=== PATIENT | male | born 1960 | race Caucasian/White ===

== ENCOUNTER 2024-01-14 20:43 | Emergency (ER) | payer BC, SELFPAY ==
[2024-01-14 20:46] VITALS: BP 164/78
--- NOTE | 2024-01-14 22:12 | ED.GENMED ---
History of Present Illness
General
Chief Complaint: Musculo-Skeletal Complaint
Time Seen by Provider: 01/14/24 21:22
History of Present Illness
History of Present Illness:
63-year-old male presents to the emergency department for evaluation of right ankle pain, was playing pickle ball and he attempted this step on the foot, felt a pop to the right heel. He is unable to bear weight since.
Review of Systems
Review of Systems
Allergies reviewed?: Yes
All Other Systems: ROS reviewed and negative except as documented in HPI and ROS
Phy Exam
Physical Exam
Physical Exam:
GEN: Well appearing, NAD, WDWN
HEENT: Oral mucosa moist, no scleral icterus
Cardiac: Regular rate
Lung: No respiratory distress, no tachypnea
MSK: Obvious deformity at the right distal Achilles tendon insertion with palpable retracted tendon body, positive Camacho sign
Skin: Good color, no pallor or jaundice, no rashes
Neuro: AO x3, moves all extremities freely
Psych: Calm, cooperative
Course
Orders/Labs/Results
Orders:
Orders
01/14/24 20:48
Ankle, Right 3 view CR [CR Ankle - Right Min 3 Views *] Urgent
Comment:
Reason For Exam: pain;swelling
01/14/24 22:12
Ortho Boot Right- Treatment ONCE
Short or tall?: Tall
Vital Signs
Initial and Last Documented VS:
Initial Vital Signs
Temp Pulse Resp BP Pulse Ox
97.5 F 71 19 164/78 100
01/14/24 20:46 01/14/24 20:46 01/14/24 20:46 01/14/24 20:46 01/14/24 20:46
Last Documented Vital Signs
Temp Pulse Resp BP Pulse Ox
97.5 F 71 19 164/78 100
01/14/24 20:46 01/14/24 20:46 01/14/24 20:46 01/14/24 20:46 01/14/24 20:46
MDM/Problems Addressed
MDM/Problems Addressed:
X-rays are negative. Exam is consistent with Achilles tendon rupture, placed in orthopedic boot and advised nonweightbearing until orthopedic follow-up
*Critical Care Note
Total Time (30-74mins, 75-104mins- exclusive of procedures): Not Applicable
ED Attending Note
-
Portions of this chart may have been created with voice recognition software.� Occasional wrong word or��sound alike� substitutions may have occurred due to the inherent limitations of voice recognition software.
Discharge Plan
Departure
Patient Disposition: Home (Routine Discharge)
Date of Disposition: 01/14/24
Time of Disposition: 22:13
Patient with high blood pressure during this ER visit?: No
Discharge Problem:
Rupture of right Achilles tendon
Instructions: Achilles Tendon Rupture (DC)
Prescriptions:
No Action
calcium carbonate [Antacid (calcium carbonate)] 1 TABLET tablet,chewable
2 tab PO Q4HPRN PRN (Reason: heartburn)
ibuprofen 200 MG tablet
600 mg PO QID Qty: 1 0RF
Rx Instructions:
take 4x/day (with meals and at bedtime) through Sunday evening; thereafter take as needed
oxycodone-acetaminophen 5 MG/325 MG tablet
1 tab PO Q4HPRN PRN (Reason: pain not relieved by ibuprofen) Qty: 15 0RF
Referrals:
Shruthi Garcia I., DO [Active] -
Avel Augustine MD [Family Provider] -
Activity Restrictions/Additional Instructions:
Follow up with Orthopedics as soon as possible
Keep the leg elevated
Wear the boot at all times. Even when wearing the boot, NO WEIGHT BEARING ON THE RIGHT LEG. Use crutches
Interventions
Interventions:
*Risk Screen - Suicide Last Done: 01/14/24 20:46
*General Assessment Last Done: 01/14/24 20:46
*Neglect/Abuse Screening Last Done: 01/14/24 20:46
ED- Fall Risk Assessment Last Done: 01/14/24 22:31
*ED COVID-19 Vaccine History Last Done: 01/14/24 20:46
*Nursing Disposition Last Done: 01/14/24 22:31
ED-Musculoskeletal Assessment Last Done: 01/14/24 21:47
Discharge Date and Time
Discharge Date/Time: 01/14/24 22:33
Print Language: [place]IZ[place]
== END 2024-01-14 22:33 | disposition home or self-care (01) ==
LOC: EMR 20:43
PROVIDERS: EMERGENCY PHYSICIAN Emergency Medicine; FAMILY PHYSICIAN Family Medicine
DX: S86.011A Strain of right Achilles tendon, initial encounter (principal); X58.XXXA Exposure to other specified factors, initial encounter; Y93.69 Activity, other involving other sports and athletics played as a team or group; Z88.0 Allergy status to penicillin; Z91.048 Other nonmedicinal substance allergy status
CPT/HCPCS: 99283; 29515; 73610

== ENCOUNTER → 2024-06-05 13:31 | Outpatient (REF) | payer BC, SELFPAY | LOC: RAD 13:31 | PROVIDERS: ATTENDING PHYSICIAN Physician Assistant Medical | DX: M25.511 Pain in right shoulder (principal) | CPT/HCPCS: 73030; 73130 ==

== ENCOUNTER → 2024-06-06 15:25 | Outpatient (REF) | payer BC, SELFPAY | LOC: PAVMRI 15:25 | PROVIDERS: ATTENDING PHYSICIAN Physician Assistant Medical | DX: M25.511 Pain in right shoulder (principal) | CPT/HCPCS: 73221 ==

== ENCOUNTER 2024-07-22 13:40 | Outpatient (RCR) | payer BC, SELFPAY | END 2024-07-22 23:59 | disposition home or self-care (01) | LOC: RPT 13:40 | PROVIDERS: ATTENDING PHYSICIAN Physician Assistant Medical; FAMILY PHYSICIAN Internal Medicine Pulmonary Disease | DX: M25.511 Pain in right shoulder (principal); Z73.6 Limitation of activities due to disability; M62.81 Muscle weakness (generalized); M79.601 Pain in right arm; M79.641 Pain in right hand; M79.642 Pain in left hand | CPT/HCPCS: 97010; 97110; 97112; 97140; 97162; 97530 ==

== ENCOUNTER 2024-08-21 15:01 | Outpatient (RCR) | payer BC, SELFPAY | END 2024-08-21 23:59 | disposition home or self-care (01) | LOC: RPT 15:01 | PROVIDERS: ATTENDING PHYSICIAN Physician Assistant Medical; FAMILY PHYSICIAN Internal Medicine Pulmonary Disease | DX: M25.511 Pain in right shoulder (principal); Z73.6 Limitation of activities due to disability; M62.81 Muscle weakness (generalized); M79.601 Pain in right arm; M25.542 Pain in joints of left hand; M79.641 Pain in right hand; M79.642 Pain in left hand; M19.011 Primary osteoarthritis, right shoulder | CPT/HCPCS: 97010; 97110; 97140 ==

== ENCOUNTER 2024-09-16 13:45 | Outpatient (RCR) | payer BC, SELFPAY | END 2024-09-16 23:59 | disposition home or self-care (01) | LOC: RPT 13:45 | PROVIDERS: ATTENDING PHYSICIAN Physician Assistant Medical; FAMILY PHYSICIAN Internal Medicine Pulmonary Disease | DX: M25.511 Pain in right shoulder (principal); Z73.6 Limitation of activities due to disability; M62.81 Muscle weakness (generalized); M79.601 Pain in right arm; M25.542 Pain in joints of left hand; M19.011 Primary osteoarthritis, right shoulder; M79.641 Pain in right hand; M79.642 Pain in left hand | CPT/HCPCS: 97110; 97140 ==

== ENCOUNTER → 2024-12-03 06:20 | Outpatient (REF) | payer BC, SELFPAY ==
[2024-12-03 08:17] LABS: % Basophils 1.3 % (0-2); % Eosinophils 8.5 % (0-6); % Immature Granulocytes 0.1 % (0-0.5); % Monocytes 7.3 % (1.7-9.3); % Neutrophils 59.8 % (42.2-75.2); Absolute Basophils 0.1 10^3/uL (0-0.2); Absolute Eosinophils 0.6 10^3/uL (0-0.7); Absolute Lymphocytes 1.7 10^3/uL (1.2-3.4); Absolute Monocytes 0.5 10^3/uL (0.1-0.6); Absolute Neutrophils 4.5 10^3/uL (1.4-6.5); Hematocrit 44.9 % (39.0-52.0); Hemoglobin 14.8 g/dL (13.0-18.0); Mean Corpuscular Hgb 28.7 pg (27.0-31.0); Mean Platelet Volume 10.3 fL (7.4-10.4); Nucleated Red Blood Cells % 0 % (-); Platelet Count 216 10^3/uL (130-400); Red Blood Cell Count 5.16 10^6/uL (4.70-6.10); Red Cell Dist. Width 13.9 % (11.5-14.5); White Blood Cell Count 7.4 10^3/uL (4.8-10.8)
[2024-12-03 09:07] LABS: ALT (SGPT) 22 U/L (0-50); AST (SGOT) 31 U/L (17-59); Albumin 4.2 g/dl (3.5-5.0); Alkaline Phosphatase 61 U/L (38-126); Blood Urea Nitrogen 20 mg/dl (9-20); Calcium 9.5 mg/dl (8.4-10.2); Carbon Dioxide 26 mmol/L (22-30); Chloride 108 mmol/L (98-107); Glucose 74 mg/dl (70-99); HDL Cholesterol 62 mg/dl; LDL Cholesterol, Calculated 97 mg/dl; Potassium 4.4 mmol/L (3.5-5.1); Sodium 141 mmol/L (135-145); Total Bilirubin 0.9 mg/dl (0.2-1.3); Total Cholesterol 169 mg/dl (50-199); Total Protein 6.9 g/dl (6.3-8.2); Triglyceride 52 mg/dl (10-149); Very Low Density Lipoprotein 10 mg/dl (0-30); eGFR > 60.00
[2024-12-03 10:30] LABS: PSA, Total - Screen < 0.06 ng/ml (0.0-4.0); TSH Reflex To Free T4 2.69 uIU/ml (0.47-4.68)
== END ==
LOC: REG 06:20
PROVIDERS: ATTENDING PHYSICIAN Student in an Organized Health Care Education/Training Program
DX: Z00.01 Encounter for general adult medical examination with abnormal findings (principal); Z85.46 Personal history of malignant neoplasm of prostate; J30.2 Other seasonal allergic rhinitis; M18.12 Unilateral primary osteoarthritis of first carpometacarpal joint, left hand; S86.001D Unspecified injury of right Achilles tendon, subsequent encounter; M19.011 Primary osteoarthritis, right shoulder; M67.813 Other specified disorders of tendon, right shoulder
CPT/HCPCS: 36415; 80053; 80061; 84443; 85025; G0103